=== PATIENT | male | born 1950 | race African-American/Black ===

== ENCOUNTER 2016-08-20 10:23 | Emergency (ER) | payer OTHER, MEDICARE ==
--- NOTE | 2016-08-20 10:32 | ER Document Report ---
ED Medical Screen (RME) - General Stated Complaint: HAND PAIN Notes: 66 yo male c/o bilat hand pain x 1 month. pt [facility] pt is waiting for rheumatology referral. pt is visiting from [place], but pain is "over the top". + generalized hand swelling. no fever. + nausea yesterday. (WENCESLAO SCOTT) Doctor's Discharge - Discharge Clinical Impression: bilateral hand pain over one month Condition: Stable Disposition: HOME, SELF-CARE Additional Instructions: biLateral hand pain Stress, inactivity, and depression make pain more severe regardless of the cause of the pain. Stress and poor physical condition can cause pain such as headaches and backache. Relaxation: Rest in a quiet place with your eyes closed for 20 minutes twice daily. Concentrate on a pleasant image, or simply "feel" your breathing. Clear your mind. Stress management: Deal with your "stressors." Either take action, or eliminate the stressor from your life. Don't let things hang over you. Accept those things you can't change. Nutrition: Eat small, balanced meals -- don't skip, don't overeat. Meals should be high-carbohydrate, low-sugar, low-fat. Exercise: Exercise helps painful conditions and eases stress. Get 30 minutes of moderate exercise, five days a week. Do an activity that does not flare your pain. Precautions: Pain which continues to disrupt daily activities, or which changes in nature, requires a medical evaluation. Pain Clinic referral is available. You have been seen and evaluated for bilateral hand pain which is been going on for over a month. You [facility] nor review asked them for anything to treat the pain. Your symptoms are not new or different by your history and physical. No acute vascular compromise. There is a multitude of things a could be causing this U also have Medicare I recommend she get a local primary care physician and takes Medicare which may expedite the process. I have also given your information to our assistant case manager to see if she can expedite the process for you'll reach out you return for increasing worsening or new symptoms [facility]-3 days term for increasing worsening or new symptoms
[2016-08-20 13:03] VITALS: BP 138/93
--- NOTE | 2016-08-20 13:09 | ER Document Report ---
ED General - General Mode of Arrival: Ambulatory Information source: Patient TRAVEL OUTSIDE OF THE [place] IN LAST 30 DAYS: No - HPI Patient complains to provider of: Bilateral Hand pain Onset: Other - 1 month ago Associated symptoms: Other - see above - General Chief Complaint: Hand Pain Stated Complaint: HAND PAIN Notes: 66 year old male with history of left neck pain that often shoots down his left arm presents to the ED complaining of bilateral arm pain that started 1 month ago. [facility] and was told that they are in the process of getting the patient in contact with a hand specialist. Patient receives care at the [facility] in [place]. (FRANCOISE BRIDGES) - Related Data Allergies/Adverse Reactions: No Known Drug Allergies Allergy (Verified 08/20/16 10:30) Past Medical History - General Information source: Patient - Social History Smoking Status: Never Smoker Chew tobacco use (# tins/day): No Frequency of alcohol use: None Drug Abuse: None Family History: Reviewed & Not Pertinent Patient has suicidal ideation: No Patient has homicidal ideation: No Renal/ Medical History: Denies: Hx Peritoneal Dialysis Musculoskeltal Medical History: Reports Other - left neck pain Review of Systems - Review of Systems Constitutional: No symptoms reported EENT: No symptoms reported Cardiovascular: No symptoms reported Respiratory: No symptoms reported Gastrointestinal: No symptoms reported Genitourinary: No symptoms reported Male Genitourinary: No symptoms reported Musculoskeletal: See HPI, Other - bilateral hand pain Skin: No symptoms reported Hematologic/Lymphatic: No symptoms reported Neurological/Psychological: No symptoms reported -: Yes All other systems reviewed and negative Physical Exam - General General appearance: Alert, Other - No active infection. In distress: None - HEENT Head: Normocephalic, Atraumatic Eyes: Normal Extraocular movements intact: Yes Pupils: PERRL Neck: Normal - no midline cervical tenderness. - Respiratory Respiratory status: No respiratory distress Breath sounds: Normal - Cardiovascular Rhythm: Regular Heart sounds: Normal auscultation Pulses: Normal: Brachial, Radial Normal capillary refill: Yes - Abdominal Inspection: Normal Distension: No distension Tenderness: Nontender - Back Back: Normal, Nontender - Extremities General upper extremity: Normal inspection, Nontender - no generalized joint pain or swelling, Normal ROM General lower extremity: Normal inspection, Nontender - no generalized joint pain or swelling, Normal ROM - Neurological Neuro grossly intact: Yes Cognition: Normal Orientation: AAOx4 [place] Coma Scale Eye Opening: Spontaneous [place] Coma Scale Verbal: Oriented [place] Coma Scale Motor: Obeys Commands [place] Coma Scale Total: 15 Speech: Normal 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 - Psychological Associated symptoms: Normal affect, Normal mood - Skin Skin Temperature: Warm Skin Moisture: Dry Skin Color: Normal - Vital signs Vitals: Temp Pulse Resp BP Pulse Ox 97.9 F 62 16 136/86 H 98 08/20/16 10:27 08/20/16 10:27 08/20/16 10:27 08/20/16 10:27 08/20/16 10:27 Discharge - Discharge Clinical Impression: bilateral hand pain over one month Condition: Stable Disposition: HOME, SELF-CARE Additional Instructions: biLateral hand pain Stress, inactivity, and depression make pain more severe regardless of the cause of the pain. Stress and poor physical condition can cause pain such as headaches and backache. Relaxation: Rest in a quiet place with your eyes closed for 20 minutes twice daily. Concentrate on a pleasant image, or simply "feel" your breathing. Clear your mind. Stress management: Deal with your "stressors." Either take action, or eliminate the stressor from your life. Don't let things hang over you. Accept those things you can't change. Nutrition: Eat small, balanced meals -- don't skip, don't overeat. Meals should be high-carbohydrate, low-sugar, low-fat. Exercise: Exercise helps painful conditions and eases stress. Get 30 minutes of moderate exercise, five days a week. Do an activity that does not flare your pain. Precautions: Pain which continues to disrupt daily activities, or which changes in nature, requires a medical evaluation. Pain Clinic referral is available. You have been seen and evaluated for bilateral hand pain which is been going on for over a month. You have not [facility] the [facility] nor review asked them for anything to treat the pain. Your symptoms are not new or different by your history and physical. No acute vascular compromise. There is a multitude of things a could be causing this U also have Medicare I recommend she get a local primary care physician and takes Medicare which may expedite the process. I have also given your information to our case specialist to see if she can expedite the process for you'll reach out you return for increasing worsening or new symptoms [facility] be [facility] in 2-3 days term for increasing worsening or new symptoms Scribe Documentation - Scribe Written by Yolanda:: Yolanda Sommers, 08/20/2016 1631 acting as scribe for :: Jose
== END 2016-08-20 13:15 | disposition home or self-care (01) ==
LOC: ER 10:23
DX: M79.642 Pain in left hand (principal); M79.641 Pain in right hand; M54.2 Cervicalgia; M79.602 Pain in left arm
CPT/HCPCS: 99283

== ENCOUNTER 2016-11-09 11:22 | Emergency (ER) | payer OTHER, MEDICARE ==
[2016-11-09] MEDS ORDERED: DIPH/PERTUSS(ACELL)/TETANUS VAC/PF 0.5 ML SYR (>=10YO) IM ONE (12:07)
[2016-11-09] MEDS ORDERED: CEFTRIAXONE RTU 1 GM/D5W 50 ML IV ONE (12:11)
--- NOTE | 2016-11-09 13:16 | RADIOLOGY REPORT (SQ) ---
EXAM DESCRIPTION: HAND RIGHT 3 VIEWS COMPLETED DATE/TIME: 11/09/2016 12:59 pm REASON FOR STUDY: right hand pain, swelling, ?pw 2nd finger COMPARISON: None. EXAM PARAMETERS: NUMBER OF VIEWS: Three views. TECHNIQUE: AP, lateral and oblique radiographic images acquired of the right hand. LIMITATIONS: None. FINDINGS: MINERALIZATION: Normal. BONES: No acute fracture or dislocation. No worrisome bone lesions. 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 SOFT TISSUES: Index finger proximal soft tissue swelling. No foreign body. No soft tissue gas. No underlying bony injury OTHER: No other significant finding. IMPRESSION: Right index finger proximal soft tissue swelling without retained radiopaque foreign bod y, soft tissue gas, or underlying bony fracture TECHNICAL DOCUMENTATION: JOB ID: [id number] [employer]- All Rights Reserved
[2016-11-09 13:25] LABS: HEMATOCRIT 40.2 % (37.9-51.0); HEMOGLOBIN 12.8 g/dL (13.5-17.0); HGB HCT DIFFERENCE -1.8; MEAN CORPUSCULAR HEMOGLOBIN 27.5 pg (27.0-33.4); MEAN CORPUSCULAR HGB CONC 31.8 g/dL (32.0-36.0); MEAN CORPUSCULAR VOLUME 87 fl (80-97); RED BLOOD COUNT 4.65 10^6/uL (4.35-5.55); RED CELL DISTRIBUTION WIDTH 16.5 % (11.5-14.0); WHITE BLOOD COUNT 11.5 10^3/uL (4.0-10.5)
[2016-11-09 13:46] LABS: ANION GAP 9 (5-19); BLOOD UREA NITROGEN 24 mg/dL (7-20); C-REACTIVE PROTEIN < 5.0 mg/L (<10.0); CALCIUM 9.2 mg/dL (8.4-10.2); CARBON DIOXIDE 24 mmol/L (22-30); CHLORIDE 109 mmol/L (98-107); CREATININE RESULT 1.45 mg/dL (0.52-1.25); GLUCOSE 76 mg/dL (75-110); POTASSIUM 4.6 mmol/L (3.6-5.0); SODIUM 141.8 mmol/L (137-145); URIC ACID 6.3 mg/dL (3.5-8.5)
[2016-11-09 14:08] LABS: BASOPHILS % (MANUAL) 0 % (0-2); EOSINOPHILS % (MANUAL) 0 % (0-6); LYMPHOCYTES % (MANUAL) 2 % (13-45); TOTAL CELLS COUNTED 100
[2016-11-09 14:09] LABS: ANISOCYTOSIS 1+; BURR CELLS SLIGHT; HELMET CELLS SLIGHT; OVALOCYTES SLIGHT; PLATELET CLUMPS PRESENT; POIKILOCYTOSIS 1+
[2016-11-09 14:10] LABS: ERYTHROCYTE SEDIMENTATION RATE 10 mm/hr (0-20)
[2016-11-09] MEDS ORDERED: CLINDAMYCIN HCL 150 MG CAPSULE PO ONE (14:42)
--- NOTE | 2016-11-09 14:49 | ER Document Report ---
ED Hand/Wrist Injury - General Chief Complaint: Hand Pain Stated Complaint: RIGHT HAND SWELLING Time Seen by Provider: 11/09/16 11:50 Mode of Arrival: Ambulatory Information source: Patient Notes: Patient complains of right hand pain and swelling for the past 2 days. Patient denies any known injury. Patient denies any fever. Patient is right-hand dominant. TRAVEL OUTSIDE OF THE [place] IN LAST 30 DAYS: No - HPI Injury to: Hand Onset: Other - 2 Days Timing: Still present Quality of pain: Achy Pain Level: 3 - Related Data Allergies/Adverse Reactions: No Known Drug Allergies Allergy (Verified 11/09/16 11:29) Past Medical History - General Information source: Patient - Social History Smoking Status: Never Smoker Chew tobacco use (# tins/day): No Frequency of alcohol use: None Drug Abuse: None Occupation: none Family History: Reviewed & Not Pertinent Patient has suicidal ideation: No Patient has homicidal ideation: No - Past Medical History Cardiac Medical History: Reports: Hx Hypertension Renal/ Medical History: Denies: Hx Peritoneal Dialysis Musculoskeltal Medical History: Reports Hx Arthritis Past Surgical History: Reports: Hx Orthopedic Surgery - Leg and hip, Other - prostate Review of Systems - Review of Systems Constitutional: No symptoms reported. denies: Fever, Recent illness EENT: No symptoms reported Cardiovascular: No symptoms reported Respiratory: No symptoms reported Gastrointestinal: No symptoms reported Genitourinary: No symptoms reported Male Genitourinary: No symptoms reported Musculoskeletal: Joint pain - right hand, Joint swelling - right hand Skin: No symptoms reported Hematologic/Lymphatic: No symptoms reported Neurological/Psychological: No symptoms reported Physical Exam - Vital signs Vitals: Temp Pulse Resp BP Pulse Ox 98.2 F 82 18 129/88 H 95 11/09/16 11:28 11/09/16 11:28 11/09/16 11:28 11/09/16 11:28 11/09/16 11:28 - General General appearance: Appears well, Alert In distress: None - HEENT Head: Normocephalic, Atraumatic Eyes: Normal Nasal: Normal Mouth/Lips: Normal Mucous membranes: Normal Neck: Normal, Supple. No: Lymphadenopathy - Respiratory Respiratory status: No respiratory distress Chest status: Nontender Breath sounds: Normal. No: Rales, Rhonchi, Stridor, Wheezing Chest palpation: Normal - Cardiovascular Rhythm: Regular Heart sounds: S1 appreciated, S2 appreciated Pulses: Normal: Radial - Back Back: Normal - Extremities General upper extremity: Tender - right hand tenderness General lower extremity: Normal inspection, Normal ROM Forearm: Normal, Nontender Wrist: Normal, Nontender Hand: Tender - And tenderness to the right second and third MCP joint with 1+ edema. Patient with pain erythema to webspace between right second and third finger. Patient with what appears to be possible puncture wound to the radial aspect of right second finger DIP joint, No evidence of human bite, Swelling - Right second finger, right second and third MCP joint, Other - Patient with tenderness with palpation of right second and third MCP joint. No: Deformity, Ecchymosis, Laceration, Tendon deficit Course - Re-evaluation Re-evalutation: 11/09/16 14:[address] Burks, Dr. Burks to bedside for examination. Recommends placing patient on antibiotics such as clindamycin and having patient follow up with his hand specialist in the next 1-2 days. Recommend having patient return immediately for any worsening of symptoms or lack of improvement. Does not recommend any immobilization at this time. Patient verbalized understanding and agrees with plan of care. 11/09/16 15:45 Late entry: After soaking the patient's hand in warm water, possible puncture wound to right second finger was explored and a small 2 mm foreign body was removed from finger - Vital Signs Vital signs: Temp Pulse Resp BP Pulse Ox 98 F 80 20 140/86 H 99 11/09/16 15:04 11/09/16 15:04 11/09/16 15:04 11/09/16 15:04 11/09/16 15:04 - Laboratory Result Diagrams: 11/09/16 12:40 11/09/16 12:40 Laboratory results interpreted by me: 11/09/16 11/09/16 12:40 12:40 WBC 11.5 H Hgb 12.8 L MCHC 31.8 L RDW 16.5 H Seg Neuts % (Manual) 94 H Lymphocytes % (Manual) 2 L Abs Neuts (Manual) 10.8 H Abs Lymphs (Manual) 0.2 L Chloride 109 H BUN 24 H Creatinine 1.45 H Est GFR ( Amer) 59 L Est GFR (Non-Af Amer) 49 L 11/09/16 14:44 Labs- Entire Visit 11/09/16 11/09/16 12:40 12:40 WBC 11.5 H RBC 4.65 Hgb 12.8 L Hct 40.2 MCV 87 MCH 27.5 MCHC 31.8 L RDW 16.5 H Plt Count 206 Total Counted 100 Seg Neutrophils % Not Reportable Seg Neuts % (Manual) 94 H Lymphocytes % Not Reportable Lymphocytes % (Manual) 2 L Monocytes % Not Reportable Monocytes % (Manual) 4 Eosinophils % Not Reportable Eosinophils % (Manual) 0 Basophils % Not Reportable Basophils % (Manual) 0 Absolute Neutrophils Not Reportable Abs Neuts (Manual) 10.8 H Absolute Lymphocytes Not Reportable Abs Lymphs (Manual) 0.2 L Absolute Monocytes Not Reportable Abs Monocytes (Manual) 0.5 Absolute Eosinophils Not Reportable Absolute Eos (Manual) 0.0 Absolute Basophils Not Reportable Abs Basophils (Manual) 0.0 Clumped Platelets PRESENT Platelet Comment ADEQUATE Poikilocytosis 1+ Anisocytosis 1+ Ovalocytes SLIGHT Helmet Cells SLIGHT Pearl Cells SLIGHT ESR 10 Sodium 141.8 Potassium 4.6 Chloride 109 H Carbon Dioxide 24 Anion Gap 9 BUN 24 H Creatinine 1.45 H Est GFR ( Amer) 59 L Est GFR (Non-Af Amer) 49 L Glucose 76 Uric Acid 6.3 Calcium 9.2 C-Reactive Protein < 5.0 11/09/16 15:45 - Diagnostic Test Radiology reviewed: Reports reviewed Discharge - Discharge Clinical Impression: Cellulitis of hand, right Puncture wound of finger Qualifiers: Encounter type: initial encounter Qualified Code(s): S61.239A - Puncture wound without foreign body of unspecified finger without damage to nail, initial encounter Condition: Stable Disposition: HOME, SELF-CARE Instructions: Cellulitis ([facility]), Puncture Wound ([facility]), Tetanus Immunization Given ([facility]), Clindamycin ([facility]), Rocephin ([facility]) Additional Instructions: Return immediately for any new or worsening symptoms including fever, increased swelling, increased redness, or any concerning symptoms Follow up with your orthopedic hand specialist in the next 1-2 days, call their office tomorrow for follow-up appointment. Prescriptions: Clindamycin HCl [Cleocin Hcl] 300 mg PO QID #28 capsule Referrals: LINDA GARCIA DO [ACTIVE STAFF] - Follow up as needed [facility] [Provider Group] - Follow up tomorrow
[2016-11-09 15:05] VITALS: BP 140/86
== END 2016-11-09 15:06 | disposition home or self-care (01) ==
LOC: ER 11:22
DX: L03.113 Cellulitis of right upper limb (principal); S61.239A Puncture wound without foreign body of unspecified finger without damage to nail, initial encounter; X58.XXXA Exposure to other specified factors, initial encounter; Z23 Encounter for immunization
CPT/HCPCS: 99283; 90471; 96374; 36415; 87040; 84550; 85025; 85652; 86140; 80048; 73130; 90715; J0696